=== PATIENT | male | born 1980 | race Caucasian/White ===

== ENCOUNTER 2022-10-16 12:02 | Emergency (ER) | payer BC, SELFPAY ==
--- NOTE | ~2022-10-16 | XR_ITS ---
EXAMINATION: XR chest 2V DATE: 10/16/2022 14:21 INDICATION: Flulike symptoms TECHNIQUE: PA and lateral views of the chest are obtained. COMPARISON: None available FINDINGS: There is mild atelectasis in the mid and lower lung zones. No pleural effusion or pneumotho rax. The cardiomediastinal silhouette is normal. The visualized bones and soft tissues are unremarkab le. IMPRESSION: 1. No acute cardiopulmonary abnormality. Reviewed, dictated and finalized at location L.
[2022-10-16 12:04] VITALS: BP 130/94; PULSE 90; RESP 16; TEMP 36.6; O2SAT 99
[2022-10-16 12:21] VITALS: O2SAT 99
[2022-10-16 13:20] LABS: Influenza A QL RT-PCR Positive (Negative); Influenza B QL RT-PCR Negative (Negative); SARS-CoV-2 RNA PCR Negative (Negative)
--- NOTE | 2022-10-16 14:03 | ECG_ITS ---
Measurements Intervals [place] Rate: 84 P: 10 MN: 143 QRS: -13 QRSD: 79 T: 5 QT: 340 QTc: 403 Interpretive Statements SINUS RHYTHM DELAYED PRECORDIAL R/S TRANSITION INFERIOR INFARCT, AGE INDETERMINATE ABNORMAL ECG NO PREVIOUS ECG AVAILABLE FOR COMPARISON Electronically Signed On 10-16-2022 15:50:01 CDT by Paul Muniz D.O.
--- NOTE | 2022-10-16 14:03 | ED.URI ---
HPI - URI/Sore Throat General Chief Complaint: Upper Respiratory Infection Stated Complaint: COVID SYMPTOMS Time Seen by Provider: 10/16/22 13:08 Source: patient Mode of arrival: ambulatory Limitations: no limitations History of Present Illness HPI Narrative: This is a 42-year-old male that presents to the emergency department for cold symptoms present over the last 2 days. Reports rhinorrhea, cough, diarrhea, and chills. Reports he has been having sharp chest pains that are worse with coughing. Denies fevers or shortness of breath. Related Data Allergies Allergy/AdvReac Type Severity Reaction Status Date / Time No Known Allergies Allergy Verified 10/16/22 12:20 Review of Systems Review of Systems: CONSTITUTIONAL: Reports chills, or sweats. ENT: Reports rhinorrhea, congestion CARDIOVASCULAR: Reports chest pain RESPIRATORY: Reports cough. Denies dyspnea. GASTROINTESTINAL: Reports diarrhea. All systems reviewed & are unremarkable except as noted in HPI and below PMFSH Past Medical History Medical History (Updated 10/16/22 @ 17:50 by Nesha Galvan PA-C) No active medical problems Social History Social History (Updated 10/16/22 @ 14:06 by Nesha Galvan PA-C) Smoking status: Current every day smoker Exam Narrative: GENERAL: Well-appearing, well-nourished, and in no acute distress. HEAD: Normocephalic, atraumatic. EYES: EOMI. ENT: Nares clear, no rhinorrhea or epistaxis. Mucous membranes moist. Oropharynx without tonsillar hypertrophy exudate or other lesions. Bilateral TMs pearly painter non-bulging NECK: Supple. No adenopathy or masses. CHEST: Clear to auscultation. No respiratory distress. No wheezes rales or rhonchi HEART: Regular rate and rhythm. No murmur heard. Normal peripheral pulses. EXTREMITIES: Normal range of motion. No edema. SKIN: Warm, dry, no rash. NEURO: No focal deficits. Alert and oriented x3. PSYCH: Normal mood and affect Course Course Emergency Course: Patient was updated on work-up and agrees with plan of care Vital Signs Vital signs: Vital Signs Temperature 97.9 F 10/16/22 12:04 Pulse Rate 90 10/16/22 12:04 Respiratory Rate 16 10/16/22 12:04 Blood Pressure 130/94 H 10/16/22 12:04 Pulse Oximetry 99 10/16/22 12:04 Temperature 97.9 F 10/16/22 12:04 Pulse Rate 78 10/16/22 15:15 Respiratory Rate 15 10/16/22 15:15 Blood Pressure 145/92 H 10/16/22 15:15 Pulse Oximetry 99 10/16/22 15:15 Oxygen Delivery Room Air 10/16/22 12:21 MDM - URI/Sore Throat MDM Narrative Medical decision making narrative: Patient presents to the emergency department for cold symptoms present over the last couple of days. Also endorsing some chest pain. He is afebrile and nontoxic-appearing. His vitals are stable. CBC and metabolic panel without concerning findings. Consistent with viral infection. EKG without acute ST changes and baseline and 3-hour troponin are negative. Chest x-ray without acute cardiopulmonary abnormality. Influenza A screen positive. Patient was updated on work-up and agrees with plan of care. Will be started on Tamiflu. Chest pain likely more musculoskeletal in nature as it is worse with coughing. He is stable and felt appropriate for further outpatient evaluation. He was given warnings to return to the ER Differential Diagnosis Differential diagnosis: Likely upper respiratory infection, viral infection, influenza and other (COVID, pneumonia) Lab Data Attestation: I reviewed the patient's lab results. 10/16/22 14:15 10/16/22 14:15 Labs: Lab Results 10/16/22 10/16/22 10/16/22 Range/Units 12:09 14:15 17:21 WBC 10.9 H (4.5-10.0) K/mm3 RBC 5.64 (4.6-6.20) M/mm3 Hgb 15.3 (14.0-18.0) g/dL Hct 47.5 (42.0-52.0) % MCV 84.2 (80-100) fl MCH 27.1 (26-34) pg MCHC 32.2 (32-36) g/dl RDW 14.0 (11.5-14.5) % Plt Count 257 (150-375) k/mm3 MPV 10.0 (7.
[2022-10-16 14:22] LABS: Basophils Percent Auto 0.3 % (0.2-1.2); Hematocrit 47.5 % (42.0-52.0); Hemoglobin 15.3 g/dL (14.0-18.0); Immature Granulocyte Absolute 0.07 K/mm3 (0.00-0.031); Immature Granulocyte Percent A 0.6 % (0-0.5); Lymphocytes Absolute Auto 1.32 K/mm3 (0.9-3.2); Lymphocytes Percent Auto 12.1 % (18.3-44.2); Mean Corpuscular HGB Conc 32.2 g/dl (32-36); Mean Corpuscular Hemoglobin 27.1 pg (26-34); Mean Corpuscular Volume 84.2 fl (80-100); Monocytes Absolute Auto 1.2 K/mm3 (0.1-0.6); Monocytes Percent Auto 10.5 % (2.6-8.5); Neutrophils Absolute Auto 8.3 K/mm3 (1.3-6.7); Neutrophils Percent Auto 76.5 % (45.5-73.1); Platelet Count Result 257 k/mm3 (150-375); Red Blood Count 5.64 M/mm3 (4.6-6.20); White Blood Count 10.9 K/mm3 (4.5-10.0)
[2022-10-16 14:34] LABS: Alanine Aminotransferase 128 U/L (6-50); Albumin Level 4.5 g/dL (3.5-5.1); Alkaline Phosphatase 121 U/L (38-126); Anion Gap 11 mmol/L (8-16); Aspartate Amino Transferase 62 U/L (17-59); Bilirubin,Total 0.5 mg/dL (0.2-1.3); Blood Urea Nitrogen 16 mg/dL (9-20); Calcium 8.9 mg/dL (8.4-10.2); Carbon Dioxide 26 mmol/L (22-30); Chloride 99 mmol/L (98-107); Estimated CRCL calculation 91 ml/min; Estimated Glomerular Filt Rate > 60; Glucose 99 mg/dL (65-110); Potassium 4.1 mmol/L (3.4-5.0); Sodium 136 mmol/L (137-145)
[2022-10-16 14:44] LABS: Troponin I < 0.012 ng/mL (0.000-0.034)
[2022-10-16] MEDS: KETOROLAC 30 MG/ML VIAL (*BKC) IM (15:10)
[2022-10-16 15:15] VITALS: BP 145/92; PULSE 78; RESP 15; O2SAT 99
[2022-10-16 17:48] LABS: Troponin I < 0.012 ng/mL (0.000-0.034)
[2022-10-16 17:59] VITALS: BP 145/97; PULSE 92; RESP 22; O2SAT 100
== END 2022-10-16 18:22 | disposition home or self-care (01) ==
PROVIDERS: Emergency Medicine; Emergency Provider Physician Assistant
DX: J10.1 Influenza due to other identified influenza virus with other respiratory manifestations (principal); Z20.822 Contact with and (suspected) exposure to COVID-19; F17.200 Nicotine dependence, unspecified, uncomplicated; R94.31 Abnormal electrocardiogram [ECG] [EKG]
CPT/HCPCS: 36415; 71046; 80053; 84484; 85025; 87636; 93005; 96372; 99284; J1885

== ENCOUNTER → 2023-03-31 07:52 | Outpatient (CLI) | payer BC, SELFPAY ==
--- NOTE | ~2023-03-31 | MR_ITS ---
EXAMINATION: MR hip RT wo con DATE: 03/31/2023 08:42 INDICATION: Right hip pain TECHNIQUE: Magnetic resonance imaging (MRI) of the right hip was performed without intravenous contr ast. Sequences included full-field axial PD-weighted FS FSE and T1-weighted FSE, coronal of the pelvi s with PD-weighted FS FSE, T2-weighted FSE and T1-weighted FSE, small field of view of the right hip with axial PD-weighted FS FSE, sagittal PD-weighted FS FSE, coronal PD-weighted FS FSE and coronal T 2 weighted FSE. Additional radial T1-weighted FGR oriented orthogonal to the acetabular rim were obta ined for evaluation of the labrum. COMPARISON: Right hip radiographs dated 03/17/2023 FINDINGS: Bones/labrum/cartilage: Alignment is normal. No fracture, avascular necrosis or pathologic marrow replacing process. There i s degeneration of the anterosuperior right acetabular labrum which has been partially replaced by a m arginal osteophyte. Mild nonuniform joint space narrowing with mild partial-thickness cartilage loss. There is decreased anterosuperior femoral head/neck offset which is best appreciated on the prior f smita-leg lateral radiograph. Fluid: Symmetric physiologic amount of fluid within both hip joints. Soft tissues: Normal and symmetric muscle bulk and signal in the pelvis and visualized proximal thighs. The iliopso as, gluteal and proximal hamstring tendons are normal. Limited evaluation of visceral organs of the p ashlyn is unremarkable. No pathologically enlarged pelvic/inguinal lymphadenopathy. IMPRESSION: 1. 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 Th is could be related to cam-type femoral acetabular impingement in the decreased anterosuperior femora l head/neck offset evident on the prior radiographs. Reviewed, dictated and finalized at location A. R RELATIONS COORDINATOR IMPRESSION: 1. 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 This could be related to cam-type femoral acetabular imping ement in the decreased anterosuperior femoral head/neck offset evident on the p rior radiographs.
== END ==
PROVIDERS: PCP Nurse Practitioner Family; Visit Provider Nurse Practitioner Family
DX: M16.11 Unilateral primary osteoarthritis, right hip (principal)
CPT/HCPCS: 73721

== ENCOUNTER 2023-04-17 08:07 | Outpatient (CLI) | payer BC, SELFPAY ==
--- NOTE | ~2023-04-17 | XR_ITS ---
EXAMINATION: XR lg joint inject/asp w image DATE: 04/17/2023 09:00 INDICATION: Right hip arthritis TECHNIQUE: A time-out was performed to verify the patient's name, date of , and procedure to b e performed. The procedure including the risks, benefits, and alternatives was discussed with the pat ient. Risks discussed included bleeding and infection. The patient understood the risks and agreed to proceed. The skin overlying the right hip joint was prepped and draped in usual sterile fashion. A nesthetic was administered with 1% lidocaine subcutaneously. A 22 G needle was advanced under fluoro scopic guidance into the joint. Injection of 1 mL of Omnipaque 240 confirmed intra-articular positio n of the needle. Subsequently, injectate consisting of 3 mm of a 2:1 mixture of 0.5% Marcaine: 80 mg /mL Depo-Medrol for a total dosage of 80 mg Depo-Medrol was instilled. Washout of contrast was seen c onfirming intra-articular administration. The needle was removed and the entry site was cleaned and d ressed. There were no immediate complications. Fluoroscopy exposure time was 0.1 minutes. The total number of images was 2. FINDINGS: Real-time fluoroscopy demonstrates the needle in the right hip joint. Patient's pain prior to procedure:4/10. Patient's pain following the procedure: 2/10. IMPRESSION: 1. Successful right hip joint injection of local anesthetic and steroid with decrease in the patient' s presenting pain. Reviewed, dictated and finalized at location A. O WELDER IMPRESSION: 1. Successful right hip joint injection of local anesthetic and steroid with de crease in the patient's presenting pain.
== END 2023-04-17 08:08 | disposition home or self-care (01) ==
LOC: ANHIMG 08:08
PROVIDERS: PCP Nurse Practitioner Family; Visit Provider Nurse Practitioner Family
DX: M16.11 Unilateral primary osteoarthritis, right hip (principal)
CPT/HCPCS: 20610; 77002; J1040; Q9966